=== PATIENT | female | born 1980 | race Caucasian/White ===

== ENCOUNTER 2018-05-21 13:33 | Emergency (ER) | payer OTHER ==
[2018-05-21 13:42] VITALS: BMI 31.3
[2018-05-21 13:47] VITALS: TEMP 98.2
--- NOTE | 2018-05-21 14:29 | PDOC ---
Attending Attestation - Resident Resident Name: Timothy Rivera - ED Attending Attestation I have performed the following: I have examined & evaluated the patient, The case was reviewed & discussed with the resident, I agree w/resident's findings & plan - HPI HPI: 05/21/18 14:24 Healthy 37-year-old female with no severe past medical history, 10 days status post on 05/11 presents now with persistent anterior right thigh paresthesias and intermittent episodes of substernal discomfort and pleuritic pain. The right anterior thigh paresthesias have been ongoing since the epidural, were considered to be a result of the epidural, and are persistent. Nothing circumferential, no associated weakness, no swelling or redness or fevers or chills. The substernal/chest complaints are strictly at night, described as a knifelike pain under the xiphoid with some pleuritic component, she typically notices it when she gets up to urinate at night and it resolves on its own after a couple of minutes. She denies any persistent chest pain or dyspnea on exertion, she is completely asymptomatic during the day when she has most active, denies any history of gallstones or postprandial abdominal pain, but she does have a history of gastritis and heartburn, describing that pain is different from this pain. Patient's family member is a physician, encouraged her to rule out PE. - Physicial Exam PE: 05/21/18 14:27 Vitals are completely normal Patient is well-appearing seated comfortably in stretcher No jaundice or pallor Oropharynx is clear, moist mucosa Heart is regular, lungs are clear without wheezing or crackles Abdomen is soft/nondistended. Slight right upper quadrant discomfort to deep palpation, No CVA tenderness. No rash Subjectively decreased sensation in the anterior region of the right thigh, skin is otherwise clear, motor intact Neurovascular intact distally - Medical Decision Making 05/21/18 14:27 Healthy 37-year-old female 10 days presents with right thigh paresthesias and atypical chest discomfort. The thigh paresthesias are in a very defined stone, possibly a branch of the femoral nerve, and not associated with any motor deficit. No evidence of DVT. Sternal chest discomfort is atypical for ACS or PE, question GI related such as gastritis/GERD or biliary colic. Check labs including troponin and d-dimer, will adjust for Chest x-ray, right lower extremity duplex Reassess 05/21/18 16:42 labs wnl, including LFTs. CXR normal, Trop negative, duplex negative. ddimer 677, which is wnl for -related ddimer (750 for 1st trimester and can stay elevated for 4-6 weeks. In light of low clinical susicion and this level ddimer 10d post-, will avoid CTA chest in this young woman). Heart Score/ECG Review #1 ECG reviewed & interpreted by me at: 14:54 General ECG Interpretation: Sinus Rhythm, Normal Rate (77), Normal Intervals ( qtc 439), No acute ischemic changes
[2018-05-21 14:46] LABS: BASO % 0.5 % (0-2.0); EOS % 3.5 % (0-4.5); HEMATOCRIT 35.3 % (32.4-45.2); HEMOGLOBIN 11.8 GM/dl (10.7-15.3); LYMPH % 24.2 % (8-40); MCHC 33.4 g/dl (32.0-36.0); MEAN CELL VOLUME 95.8 fl (80-96); MEAN PLT VOLUME 7.9 fl (7.5-11.1); MONO % 6.6 % (3.8-10.2); NEUT % 65.2 % (42.8-82.8); PLATELET COUNT 432 K/MM3 (134-434); RBC 3.68 M/mm3 (3.60-5.2); RDW 12.6 % (11.6-15.6); WHITE BLOOD COUNT 7.9 K/mm3 (4.0-10.8)
[2018-05-21 14:53] LABS: INR 1.04 (0.82-1.09); PROTHROMBIN TIME (PATIENT) 11.6 SEC (10.2-13.0)
[2018-05-21 14:55] LABS: ALBUMIN 3.7 g/dl (3.4-5.0); ALK PHOS 100 U/L (45-117); ANION GAP 7 MMOL/L (8-16); BILIRUBIN,TOTAL 0.4 mg/dl (0.2-1); BLOOD UREA NITROGEN 8 mg/dl (7-18); CALCIUM 9.5 mg/dl (8.5-10); CHLORIDE 108 mmol/L (98-107); CO2 22 mmol/L (21-32); CREATININE 0.5 mg/dl (0.55-1.3); GLUCOSE,RANDOM 81 mg/dl (74-106); POTASSIUM 3.9 mmol/L (3.5-5.1); SGOT/AST 56 U/L (15-37); SGPT/ALT 25 U/L (13-61); SODIUM 137 mmol/L (136-145)
--- NOTE | 2018-05-21 15:43 | PDOC ---
History of Present Illness - General Chief Complaint: Pain, Acute Stated Complaint: CHEST PAIN DURING NIGHT Time Seen by Provider: 05/21/18 13:35 - History of Present Illness Initial Comments: 05/21/18 15:49 37F with no pmh recently post from vaginal delivery 10 days ago on 05/11 presents now with persistent anterior right thigh paresthesias and intermittent episodes of night time substernal sharp pain and pleuritic pain. She believes and was told by the OBGYN that the feeling in her leg would go away after 2 days and probably due to injuring the nerve during labor but the states that there has been no improvement since the discomfort started. No motor weakness, the tingling is limited to the upper thigh going down below the knee and over the dorsal leg only. No back pain or parasthesias noted. The substernal/chest have been going on for the past 3 days,around 2am each night right after awakening to use the restroom. Describes an extremely sharp subxiphoid pain which prevents her from taking a breath, lasting about 2 minutes , totally pain free the rest of the day. Denies any history of gallstones or postprandial abdominal pain, but she does have a history of gastritis and heartburn, describing that pain is different from this pain. Patient's family member is a physician, encouraged her to rule out PE. Past History - Past Medical History Allergies/Adverse Reactions: Allergies Allergy/AdvReac Type Severity Reaction Status Date / Time No Known Allergies Allergy Verified 05/21/18 13:35 Home Medications: Ambulatory Orders Famotidine [Pepcid] 40 mg PO DAILY #14 tablet 05/21/18 Cardiac Disorders: No COPD: No - Surgical History Cardiac Surgery: No - Suicide/Smoking/Psychosocial Hx Smoking History: Never smoked Have you smoked in the past 12 months: No Hx Alcohol Use: No Drug/Substance Use Hx: No Substance Use Type: None Review of Systems - Review of Systems Able to Perform ROS?: Yes Is the patient limited [place] proficient: No Constitutional: No: Symptoms Reported HEENTM: No: Symptoms Reported Respiratory: Yes: See HPI Cardiac (ROS): Yes: See HPI ABD/GI: No: Symptoms Reported Musculoskeletal: Yes: See HPI Neurological: Yes: See HPI All Other Systems: Reviewed and Negative *Physical Exam - Vital Signs Last Vital Signs Temp Pulse Resp BP Pulse Ox 98.2 F 87 16 110/73 98 05/21/18 13:34 05/21/18 13:34 05/21/18 13:34 05/21/18 13:34 05/21/18 13:34 - Physical Exam General Appearance: Yes: Nourished, Appropriately Dressed. No: Apparent Distress HEENT: positive: EOMI, MILIND, Normal ENT Inspection Respiratory/Chest: positive: Lungs Clear, Normal Breath Sounds. negative: Chest Tender, Respiratory Distress Cardiovascular: positive: Regular Rhythm, Regular Rate, S1, S2 Gastrointestinal/Abdominal: positive: Normal Bowel Sounds, Flat, Soft. negative : Tender Musculoskeletal: positive: Normal Inspection Integumentary: positive: Normal Color, Dry, Warm Neurologic: positive: Fully Oriented, Alert, Normal Mood/Affect, Normal Response , Motor Strength 06/09 ED Treatment Course - LABORATORY CBC & Chemistry Diagram: 05/21/18 14:15 05/21/18 14:15 - ADDITIONAL ORDERS Additional order review: Laboratory Results 05/21/18 05/21/18 05/21/18 14:15 14:15 14:15 PT with INR 11.6 INR 1.04 Sodium 137 Potassium 3.9 Chloride 108 H Carbon Dioxide 22 Anion Gap 7 L BUN 8 Creatinine 0.5 L Creat Clearance w eGFR 140.41 Random Glucose 81 Calcium 9.5 Magnesium 2.0 Total Bilirubin 0.4 AST 56 H ALT 25 Alkaline Phosphatase 100 Creatine Kinase 96 Troponin I < 0.03 Total Protein 7.0 Albumin 3.7 05/21/18 14:15 RBC 3.68 MCV 95.8 MCHC 33.4 RDW 12.6 MPV 7.9 Neutrophils % 65.2 Lymphocytes % 24.2 Monocytes % 6.6 Eosinophils % 3.5 Basophils % 0.5 Medical Decision Making - Medical Decision Making 05/21/18 16:03 Low wells score of 1.5, we will obtain a D-dimer along with other labs to r/o PE. Legs parasthesia probably due to superficial femoral nerve irritation/injury No swelling, no pain on palpationon upper and lower extremity. Extremely low suspicion for DVT. No rash that might indicate zoster radiculopathy. 05/21/18 16:36 d-dimer 677 consistent with 10 levels. DVT study negative. Unlikely PE Probable GERD etiology due to night time occurrence *DC/Admit/Observation/Transfer Diagnosis at time of Disposition: GERD (gastroesophageal reflux disease) - Discharge Dispostion Disposition: HOME Condition at time of disposition: Stable Decision to Admit order: No - Referrals - Patient Instructions Printed Discharge Instructions: Heartburn -- Overview, GERD Diet Additional Instructions: Come back to the emergency department for any new, worsening or concerning symptom. Follow up with your primary care provider. - Post Discharge Activity
[2018-05-21 16:48] VITALS: BP 110/64; PULSE 83
--- NOTE | 2018-05-22 12:23 | EKG ---
Test Reason : Blood Pressure : / mmHG Vent. Rate : 077 BPM Atrial Rate : 077 BPM P-R Int : 172 ms QRS Dur : 080 ms QT Int : 388 ms P-R-T Axes : 023 -05 016 degrees QTc Int : 439 ms NORMAL SINUS RHYTHM NORMAL ECG NO PREVIOUS ECGS AVAILABLE Confirmed by EVERARDO HUMPHREY, JORJE ([id number]) on 05/22/2018 12:23:37 PM Referred By: KAYDEN CHESTER Confirmed By:JORJE MCGEE MD
== END 2018-05-21 16:47 | disposition home or self-care (01) ==
LOC: FER 13:33
DX: K21.9 Gastro-esophageal reflux disease without esophagitis (principal)
CPT/HCPCS: 36415; 71046-TC-FY; 80053; 82550; 83735; 84484; 85025; 85379; 85610; 93005; 93971-TC; 99283-25

== ENCOUNTER 2023-05-15 19:51 | Emergency (ER) | payer OTHER ==
[2023-05-15 20:06] VITALS: BP 120/77; PULSE 92; RESP 18; TEMP 97.8; BMI 32.4
== END 2023-05-15 20:30 | disposition home or self-care (01) ==
LOC: FER 19:51
DX: R07.89 Other chest pain (principal)
CPT/HCPCS: 93005; 99283-25